=== PATIENT | male | born 1985 | race African-American/Black ===

== ENCOUNTER 2020-02-24 14:23 | Emergency (ER) | payer OTHER, SELFPAY ==
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
[2020-02-24 14:47] VITALS: BP 136/90; PULSE 112; RESP 18; TEMP 37.1; O2SAT 100
== END 2020-02-24 15:27 | disposition home or self-care (01) ==
LOC: ANHED 15:15
PROVIDERS: Emergency Provider General Practice
DX: T65.893A Toxic effect of other specified substances, assault, initial encounter (principal); F17.210 Nicotine dependence, cigarettes, uncomplicated
CPT/HCPCS: 99282; A9270

== ENCOUNTER 2020-06-04 19:09 | Emergency (ER) | payer OTHER, SELFPAY ==
[2020-06-04 19:12] VITALS: BP 138/95; PULSE 82; RESP 18; TEMP 36.7; O2SAT 100
[2020-06-04 19:38] LABS: Add Urine Microscopic? YES; Appearance Urine Clear (Clear); Bilirubin Urine Negative (Negative); Blood Urine Negative (Negative); Color Urine Yellow (Yellow); Glucose Urine UA Negative (Negative); Ketones Urine Negative (Negative); Leukocyte Esterase Ur Negative LEU/UL (Negative); Mucus Urine Rare /lpf; Nitrate Urine Negative (Negative); Protein Urine 1+ mg/dL (Negative); RBC Urine 0-2 /hpf (0-2); WBC Urine 0-3 /hpf
[2020-06-04 19:44] LABS: Specific Grav Ur 1.031 (1.001-1.035)
--- NOTE | 2020-06-04 20:15 | ED.MALEGU ---
HPI - Male Genitourinary General Chief complaint: Urogenital-Male Stated complaint: possible uti Time Seen by Provider: 06/04/20 19:22 History of Present Illness HPI Narrative: Patient is a 34-year-old male who presents ER with dysuria. Reports history of UTIs for a related to a flap in either his urethra or near his ureters she is unsure where. Reports he has seen a urologist and conor muellering for this year issue in the past. Reports 4 days ago he used a male sexual enhancement pill called a Rhino pill. Apparently says generic versions are Viagra and Cialis inside of it. Reports he had an erection for over 4 hours and has since gone down. Reports his penis is still slightly sore. No urethral discharge or tenderness to the testicles. He is without fevers. Reports mild urinary frequency. Patient has no concerns for sexually transmitted infection. Related Data Home Medications Medication Instructions Recorded Confirmed No Home Medications 02/24/20 06/04/20 Allergies Allergy/AdvReac Type Severity Reaction Status Date / Time No Known Allergies Allergy Verified 06/04/20 19:24 Review of Systems Constitutional: Constitutional: Denies chills, Denies fever(s) and Denies weakness Gastrointestinal: Gastrointestinal: Denies abdominal pain, Denies nausea and Denies vomiting Genitourinary: Genitourinary: Denies hematuria, Denies oliguria, Denies genital lesions, Reports dysuria, Denies penile discharge, Denies testicular pain and Reports urinary frequency PMFSH Past Medical History Medical History (Updated 06/04/20 @ 20:22 by Theodore Alanis MD) Healthy adult male Surgical History Surgical History (Updated 06/04/20 @ 20:19 by Theodore Alanis MD) H/O neck surgery Social History Social History (Updated 02/24/20 @ 14:39 by Bart Richey PA-C) Smoking status: Current every day smoker Gender identity (if verbalized by the patient): Male Exam Narrative: Exam Narrative: GENERAL: Well-appearing, well-nourished, and in no acute distress. HEAD: Normocephalic, atraumatic. CHEST: Clear to auscultation. No respiratory distress. HEART: Regular rate and rhythm. Normal peripheral pulses. You: Normal-appearing external genitalia with an uncircumcised penis. With foreskin rolled back to urethral meatus appears normal as does the glans. Testicles are normal size nontender. EXTREMITIES: Normal range of motion. No edema. NEURO: Alert and oriented x3. Course Course Emergency Course: Discharge home. No evidence of infection. Patient requests a urologist and we will provide a name and contact number. Vital Signs Vital signs: Vital Signs Temperature 98.0 F 06/04/20 19:12 Pulse Rate 82 06/04/20 19:12 Respiratory Rate 18 06/04/20 19:12 Blood Pressure 138/95 H 06/04/20 19:12 Pulse Oximetry 100 06/04/20 19:12 Temperature 98.0 F 06/04/20 19:12 Pulse Rate 82 06/04/20 19:12 Respiratory Rate 18 06/04/20 19:12 Blood Pressure 138/95 H 06/04/20 19:12 Pulse Oximetry 100 06/04/20 19:12 MDM - Male Genitourinary Lab Data Labs: Lab Results 06/04/20 Range/Units 19:28 Urine Color Yellow (Yellow) Urine Appearance Clear (Clear) Urine pH 5.0 (5.0-9.0) Ur Specific [place] 1.031 (1.001-1.035) Urine Protein 1+ H (Negative) mg/dL Urine Glucose (UA) Negative (Negative) mg/dL Urine Ketones Negative (Negative) mg/dL Ur Blood (Man) Negative (Negative) Urine Nitrate Negative (Negative) Urine Bilirubin Negative (Negative) Urine Urobilinogen 2.0 H (<2.0) mg/dL Leukocyte Esterase Rfl Negative (Negative) HIRAL/UL Urine RBC 0-2 (0-2) /hpf Urine WBC 0-3 /hpf Urine Mucus Rare /lpf Urine Characteristics Clear Discharge Plan Discharge Clinical Impression: Dysuria Patient Disposition: Home, Self-Care Condition: Stable Instructions: Dysuria (ED) Additional Instruc
== END 2020-06-04 20:27 | disposition home or self-care (01) ==
PROVIDERS: Emergency Provider Emergency Medicine
DX: R30.0 Dysuria (principal); F17.200 Nicotine dependence, unspecified, uncomplicated
CPT/HCPCS: 81001; 99283

== ENCOUNTER 2020-09-12 21:33 | Emergency (ER) | payer OTHER, SELFPAY ==
[2020-09-12 21:43] VITALS: BP 147/89; PULSE 94; RESP 17; TEMP 35.9; O2SAT 98
[2020-09-12 22:03] LABS: Add Urine Microscopic? NO; Appearance Urine Clear (Clear); Bilirubin Urine Negative (Negative); Blood Urine Negative (Negative); Color Urine Straw (Yellow); Glucose Urine UA Negative (Negative); Ketones Urine Negative (Negative); Leukocyte Esterase Ur Negative LEU/UL (Negative); Nitrate Urine Negative (Negative); Protein Urine Negative (Negative); Specific Grav Ur 1.008 (1.001-1.035); Urobilinogen Urine Negative mg/dL (<2.0)
--- NOTE | 2020-09-12 23:46 | PC.NURSE ---
Pt. walked out. RN called name for vitals update and no answer. unknown time of departure.
== END 2020-09-13 00:31 | disposition left against medical advice (07) ==
PROVIDERS: Emergency Provider Emergency Medicine
DX: R30.0 Dysuria (principal)
CPT/HCPCS: 81003; 87491; 87591; 87661; 99199

== ENCOUNTER 2020-09-14 12:05 | Emergency (ER) | payer OTHER, SELFPAY ==
[2020-09-14 12:11] VITALS: BP 143/71; PULSE 80; RESP 16; TEMP 36.3; O2SAT 99
--- NOTE | 2020-09-14 12:57 | ED.MALEGU ---
HPI - Male Genitourinary General Chief complaint: Urogenital-Male Stated complaint: std check Time Seen by Provider: 09/14/20 12:13 History of Present Illness HPI Narrative: Patient is a 34-year-old male who presents to the ER with concerns for sexual transmitted infection. Reports he was sexually active with another female when the condom broke about 1 week ago. 3 to 4 days after that encounter he began to have dysuria. No discharge from the tip of his penis. No fevers or chills or sweats. No nausea or vomiting. No testicular swelling or pain. No lesions to the penis. Related Data Allergies Allergy/AdvReac Type Severity Reaction Status Date / Time No Known Allergies Allergy Verified 09/14/20 12:11 Review of Systems Constitutional: Constitutional: Denies chills and Denies fever(s) Gastrointestinal: Gastrointestinal: Denies abdominal pain, Denies nausea and Denies vomiting Genitourinary: Genitourinary: Denies oliguria, Denies genital lesions, Reports dysuria, Denies penile discharge and Reports urinary frequency PMFSH Past Medical History Medical History (Updated 09/14/20 @ 13:26 by Theodore Alanis MD) Healthy adult male Surgical History Surgical History (Updated 06/04/20 @ 20:19 by Theodore Alanis MD) H/O neck surgery Social History Social History (Updated 02/24/20 @ 14:39 by Bart Richey PA-C) Smoking status: Current every day smoker Gender identity (if verbalized by the patient): Male Exam Narrative: Exam Narrative: GENERAL: Well-appearing, well-nourished, and in no acute distress. HEAD: Normocephalic, atraumatic. EXTREMITIES: Normal strength and balance. : Normal-appearing external genitalia with uncircumcised penis without lesions. No urethral discharge. No tenderness to testicles or swelling. NEURO: Alert and oriented x3. PSYCH: Normal mood and affect. Course Course Emergency Course: We will test for STD but treat presumptively. IM Rocephin here and doxycycline for home. Patient reports he is already been in contact with his partner about getting treated. Vital Signs Vital signs: Vital Signs Temperature 97.3 F L 09/14/20 12:11 Pulse Rate 80 09/14/20 12:11 Respiratory Rate 16 09/14/20 12:11 Blood Pressure 143/71 H 09/14/20 12:11 Pulse Oximetry 99 09/14/20 12:11 Temperature 97.3 F L 09/14/20 12:11 Pulse Rate 80 09/14/20 12:11 Respiratory Rate 16 09/14/20 12:11 Blood Pressure 143/71 H 09/14/20 12:11 Pulse Oximetry 99 09/14/20 12:11 MDM - Male Genitourinary Lab Data Labs: Lab Results 09/14/20 Range/Units 13:09 Urine Color Yellow (Yellow) Urine Appearance Clear (Clear) Urine pH 6.0 (5.0-9.0) Ur Specific [place] 1.023 (1.001-1.035) Urine Protein 1+ H (Negative) mg/dL Urine Glucose (UA) Negative (Negative) mg/dL Urine Ketones Negative (Negative) mg/dL Ur Blood (Man) Negative (Negative) Urine Nitrate Negative (Negative) Urine Bilirubin Negative (Negative) Urine Urobilinogen Negative (<2.0) mg/dL Leukocyte Esterase Rfl Trace H (Negative) HIRAL/UL Urine RBC 0-2 (0-2) /hpf Urine WBC 7-9 H /hpf Ur Squamous Epith Cells Rare (Few) /hpf Urine Mucus Rare /lpf Discharge Plan Discharge Clinical Impression: Urethritis Patient Disposition: Home, Self-Care Condition: Stable Instructions: Antibiotic Form, Sexually Transmitted Diseases (ED) Additional Instructions: You were tested for sexually transmitted infection. Those results are not available at this time so you are treated presumptively given your symptoms and exposure. You received intramuscular ceftriaxone. You also need to take 7 days with the doxycycline for full treatment. Refrain from sexual activity until you are fully treated and if you do have sexual activity please wear a condom. Prescriptions: New doxycycline monohydrate 100 mg capsule 100 mg PO BID Qty: 14 RF: 0 Follow-up/Referrals: David Hahn
[2020-09-14] MEDS: cefTRIAXone 250 MG VIAL 500 MG IM (12:59)
[2020-09-14 13:19] LABS: Add Urine Microscopic? YES; Appearance Urine Clear (Clear); Bilirubin Urine Negative (Negative); Blood Urine Negative (Negative); Color Urine Yellow (Yellow); Glucose Urine UA Negative (Negative); Ketones Urine Negative (Negative); Leukocyte Esterase Ur Trace LEU/UL (Negative); Mucus Urine Rare /lpf; Nitrate Urine Negative (Negative); Protein Urine 1+ mg/dL (Negative); RBC Urine 0-2 /hpf (0-2); Specific Grav Ur 1.023 (1.001-1.035); Squamous Epithelial Cell Urine Rare /hpf (Few); Urobilinogen Urine Negative mg/dL (<2.0)
[2020-09-14 13:55] VITALS: BP 140/67; PULSE 82; RESP 18; O2SAT 99
== END 2020-09-14 13:55 | disposition home or self-care (01) ==
PROVIDERS: Emergency Provider Emergency Medicine
DX: N34.2 Other urethritis (principal); F17.200 Nicotine dependence, unspecified, uncomplicated
CPT/HCPCS: 81001; 87086; 96372; 99283; J0696

== ENCOUNTER 2020-09-30 08:57 | Emergency (ER) | payer OTHER, SELFPAY ==
[2020-09-30 09:00] VITALS: BP 158/90; PULSE 99; RESP 17; TEMP 36.7; O2SAT 100
[2020-09-30 09:43] LABS: Add Urine Microscopic? YES; Appearance Urine Clear (Clear); Bilirubin Urine Negative (Negative); Blood Urine Negative (Negative); Color Urine Yellow (Yellow); Glucose Urine UA Negative (Negative); Ketones Urine Negative (Negative); Leukocyte Esterase Ur Trace LEU/UL (Negative); Mucus Urine Rare /lpf; Nitrate Urine Negative (Negative); Protein Urine Negative (Negative); RBC Urine 0-2 /hpf (0-2); Specific Grav Ur 1.026 (1.001-1.035); Squamous Epithelial Cell Urine Rare /hpf (Few); WBC Urine 31-50 /hpf
--- NOTE | 2020-09-30 10:09 | ED.MALEGU ---
HPI - Male Genitourinary General Chief complaint: Urogenital-Male Stated complaint: Burning with Urination Time Seen by Provider: 09/30/20 09:05 History of Present Illness HPI Narrative: Patient is a 34-year-old male who presents to the ER with dysuria. Ongoing for 2 days. Reports that he was recently treated for STD and so was his fianc?e. Reports he thinks they had sex too soon before she was fully treated. Reports she was treated for trichomoniasis. Patient's chart review shows that he was tested for trichomoniasis, chlamydia, and gonorrhea. All were negative. His urine culture from 2 weeks ago was also negative. He reports he has not had sex with any other individual. He has no discharge from his penis. 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 He is having no fevers or chills or sweats. Reports he occasionally gets balanitis to the head of his penis due to being uncircumcised. He denies any new tenderness or discharge there. Related Data Allergies Allergy/AdvReac Type Severity Reaction Status Date / Time No Known Allergies Allergy Verified 09/30/20 09:02 Review of Systems Constitutional: Constitutional: Denies chills, Denies fever(s) and Denies weakness Gastrointestinal: Gastrointestinal: Denies abdominal pain, Denies nausea and Denies vomiting Genitourinary: Genitourinary: Denies genital lesions, Reports dysuria, Denies penile discharge, Denies testicular pain and Reports urinary frequency PMFSH Past Medical History Medical History (Updated 09/30/20 @ 10:51 by Theodore Alanis MD) BPH (benign prostatic hyperplasia) Prostatitis Surgical History Surgical History (Updated 06/04/20 @ 20:19 by Theodore Alanis MD) H/O neck surgery Social History Social History (Updated 02/24/20 @ 14:39 by Bart Richey PA-C) Smoking status: Current every day smoker Gender identity (if verbalized by the patient): Male Exam Narrative: Exam Narrative: GENERAL: Well-appearing, well-nourished, and in no acute distress. HEAD: Normocephalic, atraumatic. EXTREMITIES: Normal range of motion. Stands and walks with normal power. : External genitalia with uncircumcised penis. Glans demonstrates no lesions. No urethral discharge. No lesions to the shaft of the penis. NEURO: Alert and oriented x3. Clear speech. PSYCH: Normal mood and affect. Course Course Emergency Course: Given patient's recent negative test and sexual activity with another individual who has no other infections outside of trichomoniasis will tx with metronidazole. Will also tx as UTI given h/o recurrent uti. Discussed he needs to f/u with his urologist. Patient reports also that he did not have a congenital issue but he started having issues in 2017. He talked to his mom and apparently he has an enlarged prostate that is constricting his urethra and he was also diagnosed with prostatitis. Patient would also like a dose of Diflucan in case he developed some balanitis from the antibiotics. Vital Signs Vital signs: Vital Signs Temperature 98.0 F 09/30/20 09:00 Pulse Rate 99 09/30/20 09:00 Respiratory Rate 17 09/30/20 09:00 Blood Pressure 158/90 H 09/30/20 09:00 Pulse Oximetry 100 09/30/20 09:00 Temperature 98.0 F 09/30/20 09:00 Pulse Rate 99 09/30/20 09:00 Respiratory Rate 17 09/30/20 09:00 Blood Pressure 158/90 H 09/30/20 09:00 Pulse Oximetry 100 09/30/20 09:00 MDM - Male Genitourinary Lab Data Labs: Lab Results 09/30/20 Range/Units 09:28 Urine Color Yellow (Yellow) Urine Appearance Clear (Clear) Urine pH 5.0 (5.0-9.0) Ur Specific [place] 1.026 (1.001-1.035) Urine Protein Negative (Negative) mg/dL Urine Glucose (UA) Negative (Negative) mg/dL Urine Ketones Negative (Negative) mg/dL Ur Blood (Man) Negative (Negative) Urine Nitrate Negative (Negative) Urine Bilirubin Negative (Negativ
[2020-09-30 11:01] VITALS: BP 147/88; PULSE 70; RESP 16; O2SAT 99
== END 2020-09-30 11:02 | disposition home or self-care (01) ==
PROVIDERS: Emergency Provider Emergency Medicine; PCP Family Medicine
DX: N39.0 Urinary tract infection, site not specified (principal); Z20.2 Contact with and (suspected) exposure to infections with a predominantly sexual mode of transmission; N40.0 Benign prostatic hyperplasia without lower urinary tract symptoms; F17.200 Nicotine dependence, unspecified, uncomplicated; N41.9 Inflammatory disease of prostate, unspecified
CPT/HCPCS: 81001; 87086; 99283

== ENCOUNTER 2021-07-16 23:17 | Emergency (ER) | payer OTHER, SELFPAY ==
[2021-07-16 23:18] VITALS: BP 153/92; PULSE 78; RESP 18; TEMP 36.5; O2SAT 100
--- NOTE | 2021-07-17 00:39 | ED.MALEGU ---
HPI - Male Genitourinary General Chief complaint: Urogenital-Male Stated complaint: it hernandes when I pee Time Seen by Provider: 07/17/21 00:39 Source: patient Mode of arrival: ambulatory Limitations: no limitations History of Present Illness Complaint: dysuria Onset (ago): day(s) (2 ) Duration: constant Severity: mild Relieving factors: none Exacerbating factors: none Related Data Allergies Allergy/AdvReac Type Severity Reaction Status Date / Time No Known Allergies Allergy Verified 07/16/21 23:21 Review of Systems Review of Systems: All systems reviewed & are unremarkable except as noted in HPI and below Constitutional: Constitutional: Denies body ache(s), Denies chills, Denies excessive sweating, Denies fatigue, Denies fever(s), Denies headache(s), Denies lethargy, Denies malaise, Denies weakness and Denies weight loss Eyes: Eyes: Denies blurry vision, Denies change in vision and Denies loss of vision ENT: Denies dizziness, Denies ear discharge, Denies headache(s), Denies lip swelling, Denies epistaxis, Denies nasal congestion, Denies neck pain, Denies throat swelling and Denies tongue swelling Cardiovascular: Cardiovascular: Denies chest pain, Denies chest pain at rest, Denies chest pain with activity, Denies diaphoresis, Denies rapid heart rate, Denies edema, Denies irregular heart rhythm, Denies lightheadedness, Denies palpitations, Denies dyspnea and Denies dyspnea on exertion Respiratory: Respiratory: Denies chest congestion, Denies cough, Denies hemoptysis, Denies dyspnea and Denies dyspnea on exertion Gastrointestinal: Gastrointestinal: Denies abdominal pain, Denies melena, Denies hematochezia, Denies diarrhea, Denies nausea, Denies vomiting and Denies hematemesis Musculoskeletal: Musculoskeletal: Denies abnormal gait, Denies deformity, Denies joint swelling, Denies limited range of motion, Denies neck pain and Denies numbness Neurologic: Denies Abnormal speech present, Denies abnormal gait, Denies confusion, Denies dizziness, Denies headache(s), Denies focal weakness, Denies loss of vision, Denies numbness, Denies Other visual disturbances, Denies Sensory deficit (Neuro) and Denies weakness Psychiatric: Psychiatric: Denies confusion, Denies depression, Denies auditory hallucinations, Denies homicidal ideation and Denies suicidal ideation Endocrine: Endocrine: Denies cold intolerance, Denies excessive sweating, Denies fatigue, Denies heat intolerance and Denies palpitations Hematologic/Lymphatic: Hematologic/Lymphatic: Denies easy bleeding and Denies easy bruising Allergic/Immunologic: Allergic/Immunologic: Denies lip swelling, Denies throat swelling and Denies tongue swelling PMFSH Past Medical History Medical History BPH (benign prostatic hyperplasia) Prostatitis Surgical History Surgical History H/O neck surgery Social History Social History Smoking status: Current every day smoker Gender identity (if verbalized by the patient): Male Exam Const: General: cooperative, healthy appearing, comfortable, no acute distress, well developed, alert and awake; No confusion Orientation/consciousness: oriented to person, oriented to place, oriented to time, patient oriented x3 and No confusion Limitations: no limitations HENMT: Head: normal to inspection, normocephalic and atraumatic Ears: hearing grossly normal bilaterally, TM normal on the right and TM normal on the left General nose exam: Normal external nose present, Normal nares present and No nasal discharge present Face and sinus: normal facial exam Mouth: Yes Normal oral and palatal mucosa present, Yes lip normal, Yes tongue normal and Yes oropharynx normal Throat: posterior oropharynx normal, tonsils normal and uvula midline Eyes: General: appearance normal, both eyes and all rela
[2021-07-17 01:14] LABS: Add Urine Microscopic? YES; Appearance Urine Clear (Clear); Bilirubin Urine Negative (Negative); Blood Urine Negative (Negative); Color Urine Yellow (Yellow); Glucose Urine UA Negative (Negative); Ketones Urine Negative (Negative); Leukocyte Esterase Ur Negative LEU/UL (Negative); Mucus Urine Rare /lpf; Nitrate Urine Negative (Negative); Protein Urine Negative (Negative); RBC Urine 0-2 /hpf (0-2); Specific Grav Ur 1.026 (1.001-1.035)
[2021-07-17] MEDS: KETOROLAC 30 MG/ML VIAL (*BKC) IM (02:23)
[2021-07-17] MEDS: CEPHALEXIN 250 MG CAPSULE 500 MG PO (02:48)
== END 2021-07-17 02:54 | disposition home or self-care (01) ==
PROVIDERS: Emergency Provider Emergency Medicine; PCP Family Medicine
DX: N39.0 Urinary tract infection, site not specified (principal); N40.0 Benign prostatic hyperplasia without lower urinary tract symptoms; N41.9 Inflammatory disease of prostate, unspecified; F17.200 Nicotine dependence, unspecified, uncomplicated
CPT/HCPCS: 81001; 96372; 99283; A9270; J1885

== ENCOUNTER 2021-12-10 09:34 | Emergency (ER) | payer OTHER, SELFPAY ==
[2021-12-10 09:47] VITALS: BP 133/82; PULSE 79; RESP 18; TEMP 36.1; O2SAT 99
[2021-12-10 10:01] LABS: Add Urine Microscopic? NO; Appearance Urine Clear (Clear); Bilirubin Urine Negative (Negative); Blood Urine Negative (Negative); Color Urine Yellow (Yellow); Glucose Urine UA Negative (Negative); Ketones Urine Negative (Negative); Leukocyte Esterase Ur Negative LEU/UL (Negative); Nitrate Urine Negative (Negative); Protein Urine Negative (Negative); Specific Grav Ur >= 1.030 (1.001-1.035)
--- NOTE | 2021-12-10 10:28 | ED.MALEGU ---
HPI - Male Genitourinary General Chief complaint: Urogenital-Male Stated complaint: burning with urination/discharge Time Seen by Provider: 12/10/21 10:15 History of Present Illness HPI Narrative: Patient is a 35-year-old male with a history of recurrent UTI here for evaluation of dysuria and penile discharge today. Patient reports a green/white discharge from his penis and burning when he urinates. Denies urgency, frequency, abdominal pain, testicular pain, penile rashes or fevers. Patient states that he had a new sexual partner last week, used a condom but it did break. Denies known exposures to STIs. Per chart review, patient presents frequently for urinary complaints and concern for STI exposure. He does have a urologist that he follows with for a congenital malformation that reportedly renders him more susceptible to urinary tract infections. Related Data Allergies Allergy/AdvReac Type Severity Reaction Status Date / Time No Known Allergies Allergy Verified 07/16/21 23:21 Review of Systems Review of Systems: Gen: Denies fevers or chills Eyes: Denies eye pain or visual change ENT: Denies congestion Respiratory: Denies shortness of breath or cough CV: Denies chest pain or palpitations GI: Denies abdominal pain nausea, emesis or diarrhea reports burning, penile discharge. Musculoskeletal: Denies back pain or muscle pain Neuro: Denies numbness, tingling, weakness or focal weakness Skin: Denies rash Except as documented, all other systems reviewed and negative PMFSH Past Medical History Medical History BPH (benign prostatic hyperplasia) Prostatitis Surgical History Surgical History H/O neck surgery Social History Social History Smoking status: Current every day smoker Gender identity (if verbalized by the patient): Male Exam Narrative: Gen: Alert, oriented, no acute distress Eyes: EOMI, no icterus Pulm: Respirations even and unlabored, symmetric thorax expansion, no audible stridor or visible cyanosis CV: Regular rate per telemetry GI: No distension, no voluntary/involuntary guarding Neuro: AOx4, moves all extremities without apparent difficulty or weakness, follows commands : No rashes to penile region or testicles. No testicular pain with palpation. White discharge expressed from penis with manipulation. Skin: No jaundice, no visible bruising, rashes, lesions or wounds on exposed skin Psych: Normal mood/affect, insight/judgement good, adequate fund of knowledge, recent/remote memory intact Course Vital Signs Vital signs: Vital Signs Temperature 97.0 F L 12/10/21 09:47 Pulse Rate 79 12/10/21 09:47 Respiratory Rate 18 12/10/21 09:47 Blood Pressure 133/82 12/10/21 09:47 Pulse Oximetry 99 12/10/21 09:47 Oxygen Delivery Room Air 12/10/21 09:47 Temperature 97.0 F L 12/10/21 09:47 Pulse Rate 79 12/10/21 09:47 Respiratory Rate 18 12/10/21 09:47 Blood Pressure 133/82 12/10/21 09:47 Pulse Oximetry 99 12/10/21 09:47 Oxygen Delivery Room Air 12/10/21 09:47 MDM - Male Genitourinary MDM Narrative Medical decision making narrative: 35-year-old male here with dysuria and penile discharge for the past day in setting of a broken condom. Patient with history of frequent UTI. Vital signs normal, nontoxic-appearing, no testicular pain, but patient does have expressible white discharge from penis. UA negative, gonorrhea, chlamydia, trichomoniasis test pending. We will treat prophylactically for STI with ceftriaxone and Doxy and encouraged urology follow-up. Discussed return cautions with patient. Lab Data Labs: Lab Results 12/10/21 12/10/21 12/10/21 Range/Units 09:51 09:51 09:51 Urine Color Yellow (Yellow) Urine Appearance Clear (Clear) Urine pH 6.0 (5.0-9.0) Ur Specific [place]
[2021-12-10] MEDS: cefTRIAXone 1 GM VIAL 0.5 GM IM (10:34)
== END 2021-12-10 10:59 | disposition home or self-care (01) ==
LOC: ANHED 10:37
PROVIDERS: Physician Assistant; Emergency Provider Emergency Medicine; PCP Family Medicine
DX: R36.9 Urethral discharge, unspecified (principal); N40.0 Benign prostatic hyperplasia without lower urinary tract symptoms; N41.9 Inflammatory disease of prostate, unspecified; F17.200 Nicotine dependence, unspecified, uncomplicated; Z87.440 Personal history of urinary (tract) infections
CPT/HCPCS: 81003; 87491; 87591; 87661; 96372; 99283; J0696

== ENCOUNTER 2022-03-30 12:27 | Emergency (ER) | payer OTHER, SELFPAY ==
[2022-03-30 12:29] VITALS: BP 134/85; PULSE 97; RESP 20; TEMP 36.7; O2SAT 97
[2022-03-30] MEDS: metroNIDAZOLE 250 MG TABLET 2000 MG PO (12:52)
--- NOTE | 2022-03-30 12:53 | ED.MALEGU ---
HPI - Male Genitourinary General Chief complaint: Urogenital-Male Stated complaint: Buring urination Time Seen by Provider: 03/30/22 12:39 Source: patient and RN notes reviewed Mode of arrival: ambulatory Limitations: no limitations History of Present Illness HPI Narrative: This is a 36 year old male who presents for evaluation of dysuria and STD Exposure. Patient states this he has sexual intercourse with his girlfriend and they usually wear condoms. Approximately 1 week ago, the condom broke during intercourse and his girlfriend went for a check up. She called him yesterday and she told him she was found to have trichomonas. THis morning , he noticed burning with urination. He denies purulent penile discharge, abdominal pain, testicular pain, nausea, vomiting or fever. Related Data Allergies Allergy/AdvReac Type Severity Reaction Status Date / Time No Known Allergies Allergy Verified 07/16/21 23:21 Review of Systems Review of Systems: All systems reviewed & are unremarkable except as noted in HPI and below Constitutional: Constitutional: Denies chills, Denies fatigue and Denies fever(s) Gastrointestinal: Gastrointestinal: Denies abdominal pain, Denies nausea and Denies vomiting Genitourinary: Genitourinary: Denies hematuria, Denies oliguria, Reports dysuria, Denies penile discharge, Denies testicular pain and Denies urinary frequency Musculoskeletal: Musculoskeletal: Denies back pain PMFSH Past Medical History Medical History BPH (benign prostatic hyperplasia) Prostatitis Surgical History Surgical History H/O neck surgery Social History Social History Smoking status: Current every day smoker Gender identity (if verbalized by the patient): Male Exam Const: General: no acute distress and alert Nutritional Appearance: well nourished Limitations: no limitations HENMT: Head: normal to inspection Throat: posterior oropharynx normal Eyes: EOM: EOMs intact bilaterally Neck: Neck: normal visual inspection Chest: Chest palpation & inspection: normal inspection of the chest Resp: Effort & Inspection: normal respiratory effort Auscultation: clear to auscultation bilaterally Cardio: Rate: regular rate Rhythm: regular rhythm Heart sounds: no murmurs GI: GI Palp: Yes Soft to palpation, No Tenderness to palpation present (GI), No Guarding due to palpation present (GI) and No Rigid due to palpation Auscultation: normal bowel sounds Skin: General skin exam: normal color Rashes: no rashes Wounds: no wounds Neuro: General: patient oriented x3 and moves all extremities Cranial nerves: Yes CN's II-XII intact bilaterally Extrem: General: normal to inspection Psych: Mental Status: mental status grossly normal Course Reevaluation(s) Reevaluation #1: PAtient was started on treatment for trichomonas and urethritis. Date: 03/30/22 Time: 13:42 Vital Signs Vital signs: Vital Signs Temperature 98.1 F 03/30/22 12:29 Pulse Rate 97 03/30/22 12:29 Respiratory Rate 20 03/30/22 12:29 Blood Pressure 134/85 03/30/22 12:29 Pulse Oximetry 97 03/30/22 12:29 Oxygen Delivery Room Air 03/30/22 12:29 Temperature 98.1 F 03/30/22 12:29 Pulse Rate 68 03/30/22 13:50 Respiratory Rate 15 03/30/22 13:50 Blood Pressure 133/93 H 03/30/22 13:50 Pulse Oximetry 99 03/30/22 13:50 Oxygen Delivery Room Air 03/30/22 12:29 MDM - Male Genitourinary Lab Data Attestation: I reviewed the patient's lab results. Labs: Lab Results 03/30/22 Range/Units 12:51 Urine Color Yellow (Yellow) Urine Appearance Clear (Clear) Urine pH 8.5 (5.0-9.0) Ur Specific [place] 1.015 (1.001-1.035) Urine Protein Negative (Negative) mg/dL Urine Glucose (UA) Negative (Negative) mg/dL Urine
[2022-03-30 13:01] LABS: Appearance Urine Clear (Clear); Bilirubin Urine Negative (Negative); Blood Urine Negative (Negative); Color Urine Yellow (Yellow); Glucose Urine UA Negative (Negative); Ketones Urine Negative (Negative); Leukocyte Esterase Ur Negative LEU/UL (Negative); Nitrate Urine Negative (Negative); Protein Urine Negative (Negative); Specific Grav Ur 1.015 (1.001-1.035); pH Urine 8.5 (5.0-9.0)
[2022-03-30 13:12] LABS: Mucus Urine Rare /lpf; RBC Urine 0-2 /hpf (0-2); Squamous Epithelial Cell Urine Rare /hpf (Few)
[2022-03-30 13:13] LABS: Add Urine Microscopic? NO
[2022-03-30] MEDS: DOXYCYCLINE HYCLATE 100 MG TABLET PO (13:22)
[2022-03-30] MEDS: cefTRIAXone 1 GM VIAL 0.5 GM IM (13:23)
[2022-03-30] MEDS: LIDOCAINE HCL 1% LOCAL INJ 20 ML VIAL (13:33)
[2022-03-30 13:50] VITALS: BP 133/93; PULSE 68; RESP 15; O2SAT 99
== END 2022-03-30 13:55 | disposition home or self-care (01) ==
PROVIDERS: Emergency Provider General Practice; PCP Family Medicine
DX: N34.2 Other urethritis (principal); Z20.2 Contact with and (suspected) exposure to infections with a predominantly sexual mode of transmission; N40.0 Benign prostatic hyperplasia without lower urinary tract symptoms; F17.200 Nicotine dependence, unspecified, uncomplicated
CPT/HCPCS: 81003; 87491; 87591; 96372; 99283; A9270; J0696

== ENCOUNTER 2024-01-09 16:12 | Emergency (ER) | payer OTHER, SELFPAY ==
[2024-01-09 16:20] VITALS: BP 147/98; PULSE 78; RESP 18; TEMP 36.1; O2SAT 100
--- NOTE | 2024-01-09 16:54 | ED.MALEGU ---
HPI - Male Genitourinary General Chief complaint: Urogenital-Male <Leandra De Leon PA-C - Last Filed: 01/09/24 16:56> Stated complaint: penile burning <Leandra De Leon PA-C - Last Filed: 01/09/24 16:56> Time Seen by Provider: 01/09/24 17:45 <Leandra De Leon PA-C - Last Filed: 01/09/24 16:56> Focused HPI: 38-year-old male presents to the emergency department for dysuria and penile irritation for 1 day. Patient states he has had irritation around his penis. States he is uncircumcised and called his PCP who said they are concerned for balanitis advised the patient to come to the ED for further evaluation. He is also reporting dysuria for 1 day. States he has been sexually active with 1 partner for the past 6 months but would like to be STD tested as well. He denies penile discharge Or testicular pain. Denies abdominal pain, fever, nausea or vomiting. denies history of diabetes. GENERAL: Well-appearing, well-nourished, and in no acute distress. HEAD: Normocephalic, atraumatic. CHEST: Clear to auscultation. ?No respiratory distress. HEART: Regular rate and rhythm.? NEURO: ?Alert and oriented x3. Patient screened in triage and initial orders placed.? ?Additional care and disposition to be based upon?diagnostic testing and treatment. <Leandra De Leon PA-C - Last Filed: 01/09/24 16:56> Focused HPI: 38-year-old male presents to the emergency department for dysuria and penile irritation for 1 day. Patient states he has had irritation around his penis. States he is uncircumcised and called his PCP who said they are concerned for balanitis advised the patient to come to the ED for further evaluation. He is also reporting dysuria for 1 day. States he has been sexually active with 1 partner for the past 6 months but would like to be STD tested as well. He denies penile discharge or testicular pain. Denies abdominal pain, fever, nausea or vomiting. Denies history of diabetes. GENERAL: Well-appearing, well-nourished, and in no acute distress. HEAD: Normocephalic, atraumatic. CHEST: Clear to auscultation. ?No respiratory distress. HEART: Regular rate and rhythm.? NEURO: ?Alert and oriented x3. Patient screened in triage and initial orders placed.? ?Additional care and disposition to be based upon?diagnostic testing and treatment. <Karen Campuzano MD - Last Filed: 01/09/24 19:08> Related Data Allergies/Adverse reactions: Allergies Allergy/AdvReac Type Severity Reaction Status Date / Time No Known Allergies Allergy Verified 07/16/21 23:21 <Leandra De Leon PA-C - Last Filed: 01/09/24 16:56> Review of Systems Review of Systems: All systems are reviewed and are negative unless stated otherwise in the HPI. <Karen Campuzano MD - Last Filed: 01/09/24 19:08> PMFSH Past Medical History Medical History: Medical History BPH (benign prostatic hyperplasia) Prostatitis <Leandra De Leon PA-C - Last Filed: 01/09/24 16:56> Surgical History Surgical History: Surgical History H/O neck surgery <Leandra De Leon PA-C - Last Filed: 01/09/24 16:56> Social History Social History: Social History Smoking status: Current every day smoker Gender identity (if verbalized by the patient): Male <Leandra De Leon PA-C - Last Filed: 01/09/24 16:56> Exam Narrative: General: Alert, awake, afebrile, in no acute distress. HEENT: PERRL, no rhinorrhea, no post nasal drip, oropharynx clear. Cardiovascular: Regular rate and rhythm, no murmurs, rubs or gallops, no peripheral edema. Respiratory: Clear to auscultation bilaterally, no tachypnea, no wheezing, no rhonchi, no rubs, no respiratory distress. Abdomen: Soft, nontender, nondistended, no rebound, no guarding, no peritoneal signs. Genital: Exam performe
[2024-01-09 17:14] LABS: Appearance Urine Clear (Clear); Bacteria Urine None Seen /hpf; Bilirubin Urine Negative (Negative); Blood Urine Negative (Negative); Color Urine Yellow (Yellow); Glucose Urine UA Negative (Negative); Ketones Urine Trace mg/dL (Negative); Leukocyte Esterase Ur 1+ LEU/UL (Negative); Nitrate Urine Negative (Negative); Non Pathogenic Casts 0-2; Protein Urine Negative (Negative); RBC Urine 0-2 /hpf (0-2); Specific Grav Ur 1.021 (1.001-1.035); Squamous Epithelial Cell Urine None Seen /hpf (Few); WBC Urine 21-50 /hpf (0-3)
[2024-01-09 17:30] LABS: Add Urine Microscopic? YES
[2024-01-09 18:16] LABS: Trichomonas Vag PCR NOT DETECTED (NOT DETECTE)
[2024-01-09 18:42] LABS: Chlamydia trachomatis NOT DETECTED (NOT DETECTE); Neisseria gonorrhoeae PCR NOT DETECTED (NOT DETECTE)
[2024-01-09 19:15] VITALS: BP 152/86; PULSE 87; RESP 18; TEMP 36.8; O2SAT 100
== END 2024-01-09 19:37 | disposition home or self-care (01) ==
PROVIDERS: Physician Assistant; Emergency Provider Emergency Medicine; PCP Family Medicine
DX: N48.1 Balanitis (principal); F17.200 Nicotine dependence, unspecified, uncomplicated
CPT/HCPCS: 81001; 87086; 87088; 87491; 87591; 87661; 99283

== ENCOUNTER 2024-08-14 16:57 | Emergency (ER) | payer SELFPAY ==
--- NOTE | ~2024-08-14 | XR_ITS ---
EXAMINATION: XR chest 2V Exam Date/Time: 08/14/2024 17:25 ROAD GRADER OPERATOR HISTORY: SOB Comparison: None. RESULT: Lines, tubes, and devices: ACDF hardware. Lungs and pleura: Clear. Cardiomediastinal silhouette: Unremarkable. Other: No acute osseous or upper abdominal finding. IMPRESSION: No acute cardiopulmonary process. Reviewed, dictated and finalized at location K. GRADER OPERATOR
--- OUTSIDE RECORDS SUMMARY | 2024-08-14 16:59 | XMS_ITS | Clinical Summary ---
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 Gender Identity Not on file Sexual Orientation Not on file Plan of Treatment Health Maintenance Due Date Last Done Comments Hepatitis C Virus (HCV) Screening 1984 TdaP Immunization 1984 Hepatitis B Immunization (1 of 3 - 19+ 3-dose series) 12/13/2003 Influenza Immunization (#1) 2024 SARS-COV-2 Immunization ( - 2023-25 season) 2024 Respiratory Syncytial Virus (RSV) Immunization (Adult) (1 - 1-dose 75+ series) 12/13/2059 DTaP/Tdap/Td Immunization Discontinued 1995, 11/03/1992, 07/15/1990, Additional history exists Meningococcal Immunization (ACWY) Aged Out No longer eligible based on patient's age to complete this topic Pneumococcal Immunization Combined Aged Out No longer eligible based on patient's age to complete this topic Rotavirus Immunization Aged Out No lo nger eligible based on patient's age to complete this topic
--- OUTSIDE RECORDS SUMMARY | 2024-08-14 16:59 | XMS_ITS | Patient Health Summary ---
Author Organization [facility] Address [address] [place] [address] Care Team Providers Care Ophthalmic Tech Name Role Phone Williams Harrell Primary Care Provider [phone] Note from [facility],non-owned Affiliates and Associated Physician Practices is amultiple site organization consisting of ambulatory clinics and hospital sitesin [place], [place], [place] and [place]. This disclosure is being madepursuant to the Care Everywhere program and may not contain all information available regarding this patient. Last updated 18.[facility] Medications * Be aware that medications may not be up to date on this document. Alwaysverify current medications with the patient. * ibuprofen (MOTRIN) 400 MG tablet(Started 11/05/2016) Take 400 mg by mouth q6h PRN (Pain). Social History Tobacco Use Types Packs/Day Years Used Date Smoking Tobacco: Never Assessed Sex and Gender Information Value Date Recorded Sex Assigned at Not on file Gender Identity Not on file Sexual Orientation Not on file Last Filed Vital Signs Vital Sign Reading Time Taken Comments Blood Pressure 125/74 11/05/2016 3:50 PM CDT Pulse 86 11/05/2016 3:50 PM CDT Temperature 36.3 ??C (97.4 ??F) 11/05/2016 1:37 PM CD T Respiratory Rate 20 11/05/2016 3:50 PM CDT Oxygen Saturation 97% 11/05/2016 3:50 PM CDT Inhaled Oxygen Concentration - - Weight 147.4 kg (325 lb) 11/05/2016 1:37 PM CDT Height 185.4 cm (6' 1 ) 11/05/2016 1:37 PM CDT Body Mass Index 42.88 11/05/2016 1:37 PM CDT Procedures * XR WRIST LEFT 3VW OR MORE(Performed 11/05/2016) Results * XR WRIST LEFT 3VW OR MORE (11/05/2016 2:31 PM CDT) Anatomical Region Laterality Modality Wrist / Hand Other Impressions 11/05/2016 3:15 PM CDT IMPRESSION: No acute fracture or dislocation identified. Dictated by Robert Castillo MD (vice president supply chain). Dr. KHADRA Lizarraga M.D. have personally reviewed and interpreted this examination/study. This report was electronically signed by KHADRA CHO M.D. ??on 11/05/2016 3:15 PM . Narrative 11/05/2016 3:15 PM CDT EXAMINATION: XR WRIST LEFT 3+ VW HISTORY: pain, injury COMPARISON: No prior study is available for comparison. FINDINGS: The osseous structures are intact and well aligned without acute fracture or dislocation. The joint spaces are preserved. Bone density and texture are normal. No soft tissue swelling is present. Procedure Note Khadra Cho MD - 10/10/2017 EXAMINATION: XR WRIST LEFT 3+ VW HISTORY: pain, injury COMPARISON: No prior study is available for comparison. FINDINGS: The osseous structures are intact and well aligned without acute fractureor dislocation. The joint spaces are preserved. Bone density and textureare normal. No soft tissue swelling is present. IMPRESSION IMPRESSION: No acute fracture or dislocation identified. Dictated by Robert Castillo MD (vice president supply chain). Dr. KHADRA Lizarraga M.D. have personally reviewed and interpreted thisexamination/study. This report was electronically signed by KHADRA CHO M.D. on 11/05/20163:15 PM . Tad Singh MD DIAGNOSTIC IMAGING [facility]LES Care Teams Ophthalmic Tech Relationship Specialty Start Date End Date Williams Harrell [address] [place] [phone] PCP - General 11/05/16
--- OUTSIDE RECORDS SUMMARY | 2024-08-14 16:59 | XMS_ITS | Referral Summary ---
Author Organization [facility] Address [address] [place] [address] Care Team Providers Care Microfilm Clerk Name Role Phone Williams Harrell Primary Care Provider [phone] [facility],non-owned Affiliates and Associated Physician Practices is amultiple site organization consisting of ambulatory clinics and hospital sitesin [place], [place], [place] and [place]. This disclosure is being madepursuant to the Care Everywhere program and may not contain all information available regarding this patient. Last updated 18.[facility] Medications * Be aware that medications may not be up to date on this document. Alwaysverify current medications with the patient. Medication Sig Dispensed Refills Start Date End Date Status ibuprofen (MOTRIN) 400 MG tablet Take 400 mg by mouth q6h PRN (Pain). 30 tablet 0 11/05/2016 Active Social History Tobacco Use Types Packs/Day Years [...] Mass Index 42.88 11/05/2016 1:37 PM CDT Plan of Treatment Not on file Care Teams Microfilm Clerk Relationship Specialty Start Date End Date Williams Harrell [address] [place] [phone] PCP - General 11/05/16
--- OUTSIDE RECORDS SUMMARY | 2024-08-14 16:59 | XMS_ITS | Clinical Summary ---
Author Organization [facility] Address [address] [place] [address] Care Team Providers Care Loom Setter Fourdrinier Name Role Phone Williams aHrrell Primary Care Provider [phone] Source Comments [facility],non-owned Affiliates and Associated Physician Practices is amultiple site organization consisting of ambulatory clinics and hospital sitesin [place], [place], [place] and [place]. This disclosure is being madepursuant to the Care Everywhere program and may not contain all information available regarding this patient. Last updated 18.[facility] Medications * Be aware that medications may [...] 11/05/2016 1:37 PM CDT Plan of Treatment Health Maintenance Due Date Last Done Comments HIV SCREENING 12/13/1999 HEPATITIS C SCREENING 12/08/2002 DTAP/TDAP/TD VACCINES (1 - Tdap) 12/13/2003 HEPATITIS B VACCINE (1 of 3 - 19+ 3-dose series) 12/13/2003 COVID-19 VACCINE (1 - 2023-2 5 season) 2024 INFLUENZA VACCINE (#1) 2024 DEPRESSION SCREENING 07/14/2024 ZOSTER VACCINE (1 of 2) 2034 HIB VACCINE Aged Out No longer eligi ble based on patient's age to complete this topic HPV VACCINE Aged Out No longer eligi ble based on patient's age to complete this topic MENINGOCOCCAL (Group B) VACCINE Aged Out No longer eligible based on patient's age to complete this topic MENINGOCOCCAL VACCINE Aged Out No lydia eve eligible based on patient's age to complete this topic PNEUMOCOCCAL VACCINE Aged Out No long er eligible based on patient's age to complete this topic Care Teams Loom Setter Fourdrinier Relationship Specialty Start Date End Date Williams Harrell [address] [place] [phone] PCP - General 11/05/16
[2024-08-14 17:01] VITALS: BP 138/51; PULSE 78; RESP 20; TEMP 36.6; O2SAT 98
--- NOTE | 2024-08-14 17:52 | ED.GENADULT ---
HPI - General Adult General Chief complaint: Upper Respiratory Infection Stated complaint: COUGH,CONGESTION,BODY ACHES Time Seen by Provider: 08/14/24 17:09 History of Present Illness HPI narrative: 38-year-old male presenting emergency department for evaluation for increased cough congestion body aches and fatigue. Patient reports that the symptoms started last night. Patient had been feeling fine earlier in the day but reports began feeling ill. Patient states he has had some lightheaded and dizziness. Patient denies any syncopal episodes. Patient denies any chest pain but does have some body ache and fatigue. Related Data Allergies Allergy/AdvReac Type Severity Reaction Status Date / Time No Known Allergies Allergy Verified 08/14/24 16:58 Review of Systems Review of Systems: All systems reviewed & are unremarkable except as noted in HPI and below PMFSH Past Medical History Medical History BPH (benign prostatic hyperplasia) Prostatitis Surgical History Surgical History H/O neck surgery Social History Social History Smoking status: Current every day smoker Gender identity (if verbalized by the patient): Male Exam Narrative: APPEARANCE: Well appearing, no pain, no distress, well-nourished. HEAD: normocephalic, atraumatic. EYES: PERRLA/EOMI, conjunctivae clear. NOSE: Normal no drainage EARS:TMS clear with good light reflex. THROAT: Pharynx clear, no exudate. NECK: Supple. No adenopathy, no masses. RESPIRATORY: Airway patent, respirations nonlabored. Clear to auscultation bilaterally, no rales, rhonchi, wheezing. CARDIOVASCULAR: Regular rate and rhythm without murmurs rubs or gallops. ABDOMINAL: Soft, nontender, nondistended, normal bowel sounds MUSCULOSKELETAL: Moves all extremities. Strength/ROM intact, No edema, No calf tenderness. NEURO: Alert. Cranial nerves II through XII intact. Good gait. Good coordination SKIN: Warm, dry. Normal Color Course Vital Signs Vital signs: Vital Signs Temperature 97.8 F 08/14/24 17: Pulse Rate 78 08/14/24 17:01 Respiratory Rate 20 08/14/24 17:01 Blood Pressure 138/51 L 08/14/24 17:01 Pulse Oximetry 98 08/14/24 17:01 Oxygen Delivery Room Air 08/14/24 17:01 Temperature 97.8 F 08/14/24 17:01 Pulse Rate 72 08/14/24 18:08 Respiratory Rate 20 08/14/24 18:08 Blood Pressure 138/51 L 08/14/24 17:01 Pulse Oximetry 97 08/14/24 18:03 Oxygen Delivery Room Air 08/14/24 18:03 Fraction of Inspired Oxygen 21 08/14/24 18:03 Medical Decision Making MDM Narrative Medical decision making narrative: 38-year-old male presents emergency department for evaluation for flu-like symptoms. Patient did test positive for flu. Patient's while signs were within normal limits. Patient did have some shortness of breath but he was treated with a breathing treatment and did feel improved. Patient is not tachycardic or hypoxic. Patient was updated results of the workup. Patient did feel improved. Patient was comfortable plan for discharge and close follow-up. All questions concerns were addressed. Patient was well-appearing at time of discharge. Patient was provided symptomatic treatment for all. Differential Diagnosis Differential Diagnosis: COVID flu RSV influenza pneumonia Vital Signs Vital Signs: Vital Signs Temperature 97.8 F 08/14/24 17:01 Pulse Rate 78 08/14/24 17:01 Respiratory Rate 20 08/14/24 17:01 Blood Pressure 138/51 L 08/14/24 17:01 Pulse Oximetry 98 08/14/24 17:01 Oxygen Delivery Room Air 08/14/24 17:01 Temperature 97.8 F 08/14/24 17:01 Pulse Rate 72 08/14/24 18:08 Respiratory Rate 20 08/14/24 18:08 Blood Pressure 138/51 L 08/14/24 17:01 Pulse Oximetry 97 08/14/24 18:03 Oxygen Delivery Room Air 08/14/24 18:03 Fraction of Inspired Oxygen 08/14/24 18:03 Lab Data Lab results reviewed: Yes I reviewed the patient's lab results. Labs: Lab Results 08/14/24 Range/Units 17:43 Influenza A (RT-PCR) Positive A (Negative) Influenza B (RT-PCR) Negative (Negative) RSV (RT-PCR) Negative (Negative) SARS-CoV-2 RNA (RT-PCR) Negative (Negative) Discharge Plan Discharge Clinical Impression: Influenza Patient Disposition: Home, Self-Care Condition: Stable Instructions: Antibiotic Form, Influenza (ED) Additional Instructions: Tylenol and ibuprofen for fever and body aches. Albuterol for shortness of breath. Tessalon Perles for cough. Have close follow-up with your primary care physician. If you have any worsening symptoms then please call or return to the emergency department. Patient Language: Canadian Prescriptions: New benzonatate 100 mg capsule 100 mg PO TID PRN (Reason: cough) Qty: 14 0RF albuterol sulfate 90 mcg/actuation HFA aerosol inhaler 1 puff inhalation QID Qty: 6.7 0RF No Action doxycycline monohydrate 100 mg capsule 100 mg PO BID 7 Days Qty: 14 0RF clotrimazole 1 % cream 1 applic topical BID 28 Days Qty: 30 0RF Rx Instructions: Use until resolution of symptoms mupirocin 2 % ointment 1 applic topical BID Qty: 15 0RF Rx Instructions: Use until resolution of symptoms cephalexin 500 mg capsule 500 mg PO Q12H 7 Days Qty: 14 0RF doxycycline hyclate 100 mg capsule 100 mg PO BID 7 Days Qty: 14 0RF Follow-up/Referrals: Naveen Lezama MD [Primary Care Provider] - Stand Alone Forms: Work/School Release IP
[2024-08-14] MEDS: KETOROLAC (*BKC) 60 MG/2 ML VIAL IM (17:59)
[2024-08-14] MEDS: ACETAMINOPHEN 500 MG TABLET 1000 MG PO (17:59)
[2024-08-14 18:03] VITALS: PULSE 75; RESP 20; O2SAT 97
[2024-08-14] MEDS: ALBUTEROL SULFATE NEB 2.5 MG/3 ML INH INHALATION (18:03)
[2024-08-14 18:08] VITALS: PULSE 72; RESP 20
[2024-08-14 18:23] LABS: Influenza A QL RT-PCR Positive (Negative); Influenza B QL RT-PCR Negative (Negative); RSV RNA, RT-PCR Negative (Negative); SARS-CoV-2 RNA PCR Negative (Negative)
== END 2024-08-14 19:14 | disposition home or self-care (01) ==
PROVIDERS: Emergency Provider Emergency Medicine; PCP Family Medicine
DX: J11.1 Influenza due to unidentified influenza virus with other respiratory manifestations (principal); Z20.822 Contact with and (suspected) exposure to COVID-19; N40.0 Benign prostatic hyperplasia without lower urinary tract symptoms; F17.200 Nicotine dependence, unspecified, uncomplicated
CPT/HCPCS: 71046; 87637; 94640; 96372; 99283; A9270; J1885

== ENCOUNTER 2025-07-02 22:10 | Emergency (ER) | payer OTHER, SELFPAY ==
--- NOTE | ~2025-07-02 | XR_ITS ---
Examination: XR chest 2V Clinical History: sob Comparison: 08/14/2024 Technique: PA and Lateral Findings: Cardiomediastinal silhouette normal size and configuration. Lungs clear. No acute bony abnormality. IMPRESSION: 1. No acute cardiopulmonary findings. Reviewed, dictated and finalized at location R. P SUPERVISOR YARD
--- OUTSIDE RECORDS SUMMARY | 2025-07-02 22:12 | XMS_ITS | Clinical Summary ---
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
[2025-07-02 22:15] VITALS: BP 141/88; PULSE 95; RESP 16; TEMP 36.4; O2SAT 100
--- NOTE | 2025-07-03 00:17 | ECG_ITS ---
Test Date: 2025-07-03 01:47:46 Measurements Intervals Clarence Rate: 66 P: 56 TN: 161 QRS: 33 QRSD: 108 T: 55 QT: 421 QTc: 443 Interpretive Statements SINUS RHYTHM NORMAL ECG No previous ECG available for comparison Electronically Signed On 07-03-2025 08:26:12 DIAMOND DRILLER by Rubens Hayward D.O.
--- NOTE | 2025-07-03 00:21 | ED_ITS ---
HPI - URI/Sore Throat General Chief Complaint: Headache Stated Complaint: throat and chest pain, headache Time Seen by Provider: 07/03/25 00:10 Source: patient Mode of arrival: ambulatory Limitations: no limitations History of Present Illness HPI Narrative: This is a 39 year old male that presents to the ER for cold symptoms. Reports myalgias, sore throat, shortness of breath, nausea, vomiting. Reports he has had some dysuria as well. Denies fevers. Related Data Allergies Allergy/AdvReac Type Severity Reaction Status Date / Time No Known Allergies Allergy Verified 07/02/25 22:18 Review of Systems 2 Review of Systems: All systems reviewed & are unremarkable except as noted in HPI and below PMFSH Past Medical History Medical History BPH (benign prostatic hyperplasia) Prostatitis Surgical History Surgical History H/O neck surgery Social History Social History Smoking status: Current every day smoker Gender identity (if verbalized by the patient): Male Exam 2 Narrative: GENERAL: Well-appearing, well-nourished, and in no acute distress. HEAD: Normocephalic, atraumatic. EYES: EOMI. ENT: Nares clear, no rhinorrhea or epistaxis. Mucous membranes moist. Oropharynx without tonsillar hypertrophy exudate or other lesions. Bilateral TMs pearly villanueva non-bulging NECK: Supple. No adenopathy or masses. CHEST: Clear to auscultation. No respiratory distress. No wheezes rales or rhonchi HEART: Regular rate and rhythm. No murmur heard. Normal peripheral pulses. ABDOMEN: Soft, nontender, nondistended, normal active bowel sounds. EXTREMITIES: Normal range of motion. No edema. SKIN: Warm, dry, no rash. NEURO: No focal deficits. Alert and oriented x3. PSYCH: Normal mood and affect Course Vital Signs Vital signs: Vital Signs Temperature 97.6 F 07/02/25 22:15 Pulse Rate 95 07/02/25 22:15 Respiratory Rate 16 07/02/25 22:15 Blood Pressure 141/88 H 07/02/25 22:15 Pulse Oximetry 100 07/02/25 22:15 Oxygen Delivery Room Air 07/02/25 22:15 Temperature 97.6 F 07/02/25 22:15 Pulse Rate 82 07/03/25 04:00 Respiratory Rate 18 07/03/25 04:00 Blood Pressure 140/78 07/03/25 04:00 Pulse Oximetry 100 07/03/25 04:00 Oxygen Delivery Room Air 07/02/25 22:15 [employer] Narrative Medical decision making narrative: Patient presents the emergency department with viral symptoms. Also endorsing some dysuria. He is afebrile and nontoxic appearing. His vitals are stable. CBC and metabolic panel without concerning findings. Urine with 11-20 white blood cells and trace leuk esterase. This is sent for culture. Patient given 1st dose of antibiotics IV. Chlamydia, gonorrhea, Trichomonas tests are negative. Influenza, COVID, RSV, strep screens are negative. Chest x-ray without acute cardiopulmonary abnormality. Patient updated on his workup and agrees with plan of care Differential Diagnosis Differential Diagnosis: COVID, influenza, UTI, STD, viral syndrome Lab Data [facility] Lab Attestation statement: I personally reviewed the patient's lab results. 07/03/25 01:04 07/03/25 01:04 Labs: Lab Results 07/03/25 07/03/25 Range/Units 01:04 01:39 WBC 4.7 (4.5-10.0) K/mm3 RBC 5.17 (4.6-6.20) M/mm3 Hgb 14.2 (14.0-18.0) g/dL Hct 43.7 (42.0-52.0) % MCV 84.5 (80-100) fl MCH 27.5 (26-34) pg MCHC 32.5 (32-36) g/dl RDW 13.0 (11.5-14.5) % Plt Count 217 (150-375) k/mm3 MPV 9.8 (7.4-10.4) fl Immature Gran % (Auto) 0.2 (0-0.5) % Neut % (Auto) 40.5 L (45.5-73.1) % Lymph % (Auto) 47.7 H (18.3-44.2) % [place] % (Auto) 9.9 H (2.6-8.5) % Eos % (Auto) 1.3 (0-4.4) % Baso % (Auto) 0.4 (0.2-1.2) % Lymph # (Auto) 2.22 (0.9-3.2) K/mm3 [place] # (Auto) 0.5 (0.1-0.6) K/mm3 Eos # (Auto) 0.1 (0-0.3) K/mm3 Baso # (Auto) 0.0 (0.0-0.1) K/mm3 Abs Immat Gran (auto) 0.01 (0.00-0.031) K/mm3 Absolute Neuts (auto) 1.9 (1.3-6.7) K/mm3 Absolute Nucleated RBC 0.000 (0.0-0.012) K/mm3 Nucleated RBC % 0.0 (0.0-0.2) % Sodium 139 (137-145) mmol/L Potassium 4.0 (3.4-5.0) mmol/L Chloride 104 (98-107) mmol/L Carbon Dioxide 29 (22-30) mmol/L Anion Gap 6 (4-12) mmol/L BUN 15 (9-20) mg/dL Creatinine 1.12 (0.7-1.3) mg/dL Estim Creat Clear Calc 110 ml/min Estimated GFR > 60 (59 - ) Glucose 101 (65-110) mg/dL Calcium 9.6 (8.4-10.2) mg/dL Total Bilirubin 0.5 (0.2-1.3) mg/dL AST 36 (17-59) U/L ALT 14 (6-50) U/L Alkaline Phosphatase 73 (38-126) U/L Troponin I < 0.012 (0.000-0.034) ng/mL Total Protein 8.3 H (6.3-8.2) g/dL Albumin 4.5 (3.5-5.1) g/dL Urine Color Yellow (Yellow) Urine Appearance Clear (Clear) Urine pH 6.0 (5.0-9.0) Ur Specific [place] 1.028 (1.001-1.035) Urine Protein Negative (Negative) mg/dL Urine Glucose (UA) Negative (Negative) mg/dL Urine Ketones Trace H (Negative) mg/dL Ur Blood (Man) Negative (Negative) Urine Nitrate Negative (Negative) Urine Bilirubin Negative (Negative) Urine Urobilinogen 1.0 (<2.0) mg/dL Leukocyte Esterase Rfl Trace H (Negative) HIRAL/UL Urine RBC 0-2 (0-2) /hpf Urine WBC 11-20 H (0-3) /hpf Ur Squamous Epith Cells None seen (Few) /hpf Urine Bacteria None seen /hpf Urine Casts 0-2 C. trachomatis (PCR) Not detected (NOT DETECTE) Influenza A (RT-PCR) Negative (Negative) Influenza B (RT-PCR) Negative (Negative) N. gonorrhoeae (PCR) Not detected (NOT DETECTE) RSV (RT-PCR) Negative (Negative) SARS-CoV-2 RNA (RT-PCR) Negative (Negative) Group A Strep (PCR) Not detected (Negative) T. vaginalis (PCR) Not detected (NOT DETECTE) Imaging Data My impression: Chest x-ray: No acute cardiopulmonary abnormality Radiologist's impression: ITS Impressions Chest X-Ray 07/03/25 06:39 IMPRESSION: 1. No acute cardiopulmonary findings. ECG Data EKG #1: ECG completion date: 07/03/25 normal rate, sinus rhythm, no ST changes and normal QT Critical Care Time Critical Care Time Critical Care Time: No Discharge Plan Discharge Clinical Impression: Acute UTI Patient Disposition: Home Condition: Stable Instructions: Antibiotic Form, Urinary Tract Infection in Men (ED) Additional Instructions: Return to the emergency department for worsening symptoms, or any other concerns Remain well-hydrated, get plenty of rest. Take Tylenol or Motrin [id number] for pain as needed. Flonase for nasal congestion. Zyrtec for runny nose. Lozenges or Chloraseptic spray for sore throat. Take oral antibiotics as prescribed Follow up with primary care doctor Patient Language: Upper Sorbian Prescriptions: New cefdinir 300 mg capsule 300 mg PO Q12H 7 Days Qty: 14 0RF No Action doxycycline monohydrate 100 mg capsule 100 mg PO BID 7 Days Qty: 14 0RF clotrimazole 1 % cream 1 applic topical BID 28 Days Qty: 30 0RF Rx Instructions: Use until resolution of symptoms mupirocin 2 % ointment 1 applic topical BID Qty: 15 0RF Rx Instructions: Use until resolution of symptoms cephalexin 500 mg capsule 500 mg PO Q12H 7 Days Qty: 14 0RF doxycycline hyclate 100 mg capsule 100 mg PO BID 7 Days Qty: 14 0RF benzonatate 100 mg capsule 100 mg PO TID PRN (Reason: cough) Qty: 14 0RF albuterol sulfate 90 mcg/actuation HFA aerosol inhaler 1 puff inhalation QID Qty: 6.7 0RF Follow-up/Referrals: Naveen Lezama MD [Physician, Family Practice] Stand Alone Forms: Work/School Release IP
--- OUTSIDE RECORDS SUMMARY | 2025-07-03 00:48 | XMS_ITS | Clinical Summary ---
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
[2025-07-03] MEDS: KETOROLAC 15 MG/ML VIAL (*BKC) IV PUSH (01:12)
[2025-07-03 01:18] LABS: Hematocrit 43.7 % (42.0-52.0); Hemoglobin 14.2 g/dL (14.0-18.0); Immature Granulocyte Percent A 0.2 % (0-0.5); Lymphocytes Absolute Auto 2.22 K/mm3 (0.9-3.2); Mean Corpuscular HGB Conc 32.5 g/dl (32-36); Mean Corpuscular Hemoglobin 27.5 pg (26-34); Mean Corpuscular Volume 84.5 fl (80-100); Nucleated Red Blood Cells Absolute Auto 0.000 K/mm3 (0.0-0.012); Nucleated Red Blood Cells Perc 0.0 % (0.0-0.2); Platelet Count Result 217 k/mm3 (150-375); Red Blood Count 5.17 M/mm3 (4.6-6.20); White Blood Count 4.7 K/mm3 (4.5-10.0)
[2025-07-03 01:32] LABS: Alanine Aminotransferase 14 U/L (6-50); Albumin Level 4.5 g/dL (3.5-5.1); Alkaline Phosphatase 73 U/L (38-126); Anion Gap 6 mmol/L (4-12); Aspartate Amino Transferase 36 U/L (17-59); Bilirubin,Total 0.5 mg/dL (0.2-1.3); Blood Urea Nitrogen 15 mg/dL (9-20); Calcium 9.6 mg/dL (8.4-10.2); Carbon Dioxide 29 mmol/L (22-30); Chloride 104 mmol/L (98-107); Estimated CRCL calculation 110 ml/min; Estimated Glomerular Filt Rate > 60; Glucose 101 mg/dL (65-110); Potassium 4.0 mmol/L (3.4-5.0); Sodium 139 mmol/L (137-145); Total Protein 8.3 g/dL (6.3-8.2)
[2025-07-03 01:43] LABS: Troponin I < 0.012 ng/mL (0.000-0.034)
[2025-07-03 01:54] LABS: Strep Group A RT-PCR NOT DETECTED (Negative)
[2025-07-03 02:05] LABS: Influenza A QL RT-PCR Negative (Negative); Influenza B QL RT-PCR Negative (Negative); RSV RNA, RT-PCR Negative (Negative); SARS-CoV-2 RNA PCR Negative (Negative)
[2025-07-03 02:50] LABS: Add Urine Microscopic? YES; Appearance Urine Clear (Clear); Glucose Urine UA Negative (Negative); Leukocyte Esterase Ur Trace LEU/UL (Negative); Nitrate Urine Negative (Negative); Non Pathogenic Casts 0-2; Specific Grav Ur 1.028 (1.001-1.035)
[2025-07-03 03:04] LABS: Trichomonas Vag PCR NOT DETECTED (NOT DETECTE)
[2025-07-03] MEDS: cefTRIAXone 1 GM in SODIUM CHLORIDE 0.9% IV 50 ML 100 ML IVPB (03:41)
[2025-07-03 04:00] VITALS: BP 140/78; PULSE 82; RESP 18; O2SAT 100
== END 2025-07-03 04:15 | disposition home or self-care (01) ==
PROVIDERS: Emergency Provider Physician Assistant
DX: N39.0 Urinary tract infection, site not specified (principal); Z20.822 Contact with and (suspected) exposure to COVID-19; N40.0 Benign prostatic hyperplasia without lower urinary tract symptoms; F17.200 Nicotine dependence, unspecified, uncomplicated
CPT/HCPCS: 36415; 71046; 80053; 81001; 84484; 85025; 87086; 87491; 87591; 87637; 87651; 87661; 93005; 96365; 96375; 99284; J0696; J1885